=== PATIENT | male | born 1980 ===

== ENCOUNTER 2018-06-07 03:29 | Observation (INO) | payer OTHER ==
[2018-06-07 04:52] LABS: #Basophils 0.1 thou/uL (0.0-0.2); #Eosinphils 0.2 thou/uL (0.0-0.7); #Monocytes 0.5 thou/uL (0.11-0.59); #Neutrophils 4.5 thou/uL (1.40-6.50); %Basophils 1.1 % (0.0-1.0); %Eosinophils 2.3 % (0.0-10.0); %Lymphocytes 27.3 % (21.0-51.0); %Monocytes 7.2 % (0.0-10.0); %Neutrophils 62.1 % (42.0-75.0); Hemoglobin 15.8 g/dL (14.0-18.0); Mean Corpuscular HGB CONC 33.7 g/dL (32.0-36.0); Mean Corpuscular Hemoglobin 28.6 pg (27.0-31.0); Platelet Count 205 thou/uL (130-400); RBC Distribution Width 12.8 % (11.5-14.5); Red Blood Cell (RBC) Count 5.52 mill/uL (4.70-6.10); White Blood Cell (WBC) Count 7.3 thou/uL (4.8-10.8)
[2018-06-07 05:13] LABS: ALT (SGPT) 23 U/L (8-55); AST (SGOT) 36 U/L (5-34); Albumin 4.6 g/dL (3.5-5.0); Alkaline Phosphatase 68 U/L (40-150); Anion Gap 12 mmol/L (10-20); BUN (Urea Nitrogen) 11 mg/dL (8.9-20.6); Bilirubin, Total 1.5 mg/dL (0.2-1.2); Calc. Creatinine Clearance 0 mL/min (70-130); Calcium 9.5 mg/dL (7.8-10.44); Carbon Dioxide 25 mmol/L (22-29); Chloride 105 mmol/L (98-107); Estimated GFR-MDRD Greater than 90; Globulin 3.4 g/dL (2.4-3.5); Glucose 97 mg/dL (70-105); Lipase 28 U/L (8-78); Sodium 138 mmol/L (136-145)
[2018-06-07] MEDS ORDERED: Zolpidem Tartrate 5 MG TAB PO PRN (08:35)
[2018-06-07] MEDS ORDERED: Acetaminophen 325 MG TAB PO PRN (08:35)
[2018-06-07] MEDS ORDERED: HYDROcodone/Acetaminophen 5/325 mg Tablet PO PRN (08:35)
[2018-06-07] MEDS ORDERED: Bisacodyl 5 MG TAB PO PRN (08:35)
[2018-06-07] MEDS ORDERED: Ondansetron ODT 4 MG TAB PO PRN (08:35)
[2018-06-07] MEDS ORDERED: Calcium Carbonate 500 MG ChewTAB PO PRN (08:35)
[2018-06-07] MEDS ORDERED: Loperamide HCl 2 MG CAP PO PRN (08:35)
[2018-06-07] MEDS ORDERED: Bisacodyl 10 MG SUPP PR PRN (08:35)
[2018-06-07] MEDS ORDERED: Lorazepam 2 MG/ML VIAL SLOW IVP PRN (08:35)
[2018-06-07] MEDS ORDERED: Senokot S 8.6-50 MG TAB PO PRN (08:35)
[2018-06-07] MEDS ORDERED: Ondansetron PF 4 MG/2 ML Vial IVP PRN (08:35)
[2018-06-07] MEDS ORDERED: Famotidine 20 MG TAB ONE (09:02)
[2018-06-07 09:40] LABS: Bilirubin Negative (Negative); Blood, Urine Negative (Negative); Clarity CLEAR (Clear); Glucose, Urine (Dipstick) Negative (Negative); Leukocyte Negative (Negative); Nitrite Negative (Negative); Protein, Urine (Dipstick) Negative (Neg-Trace); Specific Gravity, Urine 1.035 (1.002-1.036); Urobilinogen 0.2 mg/dL (0.2-1.0); pH, Urine 6.5 (5.0-9.0)
[2018-06-07 09:50] LABS: Amphetamine Not Detected (NotDetected); Barbiturates Screen Not Detected (NotDetected); Benzodiazepine Screen Not Detected (NotDetected); Cocaine Metabolite Screen Not Detected (NotDetected); Medtox Control Line Valid? VALID (VALID); Medtox Reader # READER 1; Methadone Not Detected (NotDetected); Methamphetamine Not Detected (NotDetected); Opiate Screen Not Detected (NotDetected); Oxycodone Screen Not Detected (NotDetected); Phencyclidine (PCP) Not Detected (NotDetected); THC/Cannabinoid Screen Not Detected (NotDetected); Tricyclic Screen Not Detected (NotDetected)
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
[2018-06-07 12:03] VITALS: BMI 32.1
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
[2018-06-07] MEDS: Famotidine 20 MG TAB PO SCH ×2 (15:07→21:01)
--- NOTE | 2018-06-07 15:49 | MRI ---
MRI BRAIN WITHOUT CONTRAST: 06/07/17 HISTORY: Focal seizure. COMPARISON: None. FINDINGS: On the diffusion weighted imaging sequence there are no abnormal areas of diffusion restriction. This is confirmed on the ACD map. On the susceptibility weighted imaging sequence there are no abnormal areas of hemorrhage. On the FLA IR sequence there are no abnormal areas of gliosis. No midline shift or mass effect. The [place] flow voids are maintained. The clivus and marrow signal is normal. Corpus callosum is normal. IMPRESSION: Normal exam . POS: [facility]
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
[2018-06-07] MEDS: levETIRAcetam 500 MG TAB PO SCH (21:01)
[2018-06-07] MEDS ORDERED: Oxybutynin 5 MG TAB PO SCH (22:30)
[2018-06-08 06:50] LABS: #Basophils 0.1 thou/uL (0.0-0.2); #Eosinphils 0.2 thou/uL (0.0-0.7); #Lymphocytes 1.6 thou/uL (1.20-3.40); #Monocytes 0.5 thou/uL (0.11-0.59); #Neutrophils 3.9 thou/uL (1.40-6.50); %Basophils 0.9 % (0.0-1.0); %Lymphocytes 24.7 % (21.0-51.0); %Monocytes 8.5 % (0.0-10.0); Hemoglobin 16.3 g/dL (14.0-18.0); Mean Corpuscular HGB CONC 34.1 g/dL (32.0-36.0); Mean Corpuscular Hemoglobin 29.3 pg (27.0-31.0); Mean Corpuscular Volume 85.9 fL (78.0-98.0); Mean Platelet Volume 8.9 fL (7.4-10.4); Platelet Count 185 thou/uL (130-400); Red Blood Cell (RBC) Count 5.56 mill/uL (4.70-6.10); White Blood Cell (WBC) Count 6.3 thou/uL (4.8-10.8)
[2018-06-08 07:17] LABS: Anion Gap 12 mmol/L (10-20); BUN (Urea Nitrogen) 12 mg/dL (8.9-20.6); Calc. Creatinine Clearance 175 mL/min (70-130); Calcium 9.4 mg/dL (7.8-10.44); Carbon Dioxide 26 mmol/L (22-29); Chloride 104 mmol/L (98-107); Estimated GFR-MDRD Greater than 90; Glucose 88 mg/dL (70-105); Magnesium 2.5 mg/dL (1.6-2.6); Potassium 4.3 mmol/L (3.5-5.1); Sodium 138 mmol/L (136-145)
[2018-06-08] MEDS: levETIRAcetam 500 MG TAB PO SCH (08:04)
[2018-06-08] MEDS: Famotidine 20 MG TAB PO SCH (08:04)
[2018-06-08] MEDS ORDERED: Oxybutynin 5 MG TAB PO SCH (09:00)
--- NOTE | 2018-06-08 11:47 | DIS ---
DATE OF ADMISSION: 06/07/2018 DATE OF DISCHARGE: 06/08/2018 PRIMARY CARE PHYSICIAN: Niesha Brown. DISCHARGE DISPOSITION: Residential. PRIMARY DISCHARGE DIAGNOSIS: New onset focal seizure with Iraj's paralysis. SECONDARY DISCHARGE DIAGNOSIS: Obesity with body mass index 32. PRIMARY PROCEDURE/OPERATION: EEG, normal. Radiological investigation: MRI brain normal. Skull x-ray: Unremarkable. SIGNIFICANT LABS: WBC 6.3, hemoglobin 16.3, platelet 185. Sodium 138, potassium 4.3, BUN 12, creatinine 0.83, calcium 9.4, magnesium 2.5. LFT normal. Prolactin 12.4. TSH 1.26. Urinalysis normal. Urine drug screen negative. DISCHARGE MEDICATIONS: 1. Keppra 500 mg p.o. b.i.d. 2. Oxybutynin 10 mg p.o. b.i.d. CONTRAINDICATION: None. CODE STATUS: Full code. INPATIENT FLATBED STITCHER: Dr. Melva Fisher, neurologist, was following while in hospital. TEST RESULTS PENDING ON DISCHARGE: None. ALLERGIES: NO KNOWN DRUG ALLERGIES. DISCHARGE PLAN: Post hospital, the patient is instructed to follow up with Neurology as instructed. HOSPITAL COURSE: A 38-year-old male, who was admitted by me yesterday. Please see my HPI for further details. The patient was having seizure and Iraj's paralysis. He was initially evaluated at [facility] and subsequently, he was transferred to our hospital. His routine blood test was normal. We did MRI brain, which was normal. We consulted Neurology, and Neurology recommended to start antiepileptic medication with Keppra. Keppra was prescribed on discharge. EEG was done, which was essentially normal. I have seen and examined the patient at bedside today. PHYSICAL EXAMINATION: VITAL SIGNS: Currently, temperature 97.8, pulse 67, respiratory rate 16, saturation 99% on room air, blood pressure 117/82, weight 230 pounds. GENERAL: The patient is currently alert, awake, in no obvious acute distress. HEENT: Head; normocephalic, atraumatic. Eyes; pupils round, reactive to light. Extraocular muscle intact. ENT; oropharynx within normal limits. Moist mucous membranes. No oral lesion. No pharyngeal erythema. No exudate. NECK: Supple. No JVD. No thyromegaly. No carotid bruit. LUNGS: Clear to auscultation without any rhonchi or rales. CARDIAC: S1, S2. Regular without any murmur. ABDOMEN: Soft and benign. EXTREMITIES: No edema. NEUROLOGIC: Nonfocal examination. The patient is medically stable for discharge today. Job ID: [id number]
[2018-06-08 12:13] VITALS: BP 126/87; TEMP 98.8
--- NOTE | 2018-06-08 19:19 | PRG ---
DATE OF SERVICE: 06/08/2018 FOLLOWUP NEUROLOGY NOTE PRESENT ILLNESS: The patient has not had anymore focal seizures on the right side. He is getting his EEG at this time. No other complaints. OBJECTIVE: VITAL SIGNS: Blood pressure 126/87, temperature 98.8, pulse 89 and regular, respiratory rate 16, and O2 saturation is 96% on room air. NEUROLOGIC: Awake and alert. Cranial nerves 2 through 12 are normal. Motor 5/5 strength in the arms and legs. DTRs 2+. Toes downgoing. Sensation is normal. The patient underwent EEG and now is in the room during the EEG. The EEG is normal. The patient had some intermittent brief twitch of his legs during the EEG, but no EEG change indicated any epileptiform activity, so this was just some myoclonic twitches, not seizures that we see during his EEG. Other test; his white count is 6.3, hemoglobin 16.3, hematocrit 47.7, platelets 185,000. Chemistry showed a sodium 138, CO2 of 26, BUN 12, glucose 88, calcium 9.4. Prolactin level was 12.40, normal is 3.46 to 19.4. EEG done today is normal with no epileptiform activity. MRI of the brain without contrast is normal. The patient has been started on Keppra 500 mg p.o. twice a day. IMPRESSION: New seizure disorder with right-sided facial spasms and twitching, consistent with focal seizure disorder. The patient has had several head injuries in the past that could result in this. PLAN: Discussed with the patient. Discussed test results with him. Advised of seizure precautions. He should not drive, avoid unprotected heights, avoid dangerous machinery and tools. Avoid tub baths and use caution around water to avoid drowning. Continue with the Keppra. Risk and benefit of the medicine are discussed with him, and he should follow up with neurologist after he gets out of the hospital. Job ID: [id number]
--- NOTE | 2018-06-09 13:52 | EEG ---
Referring Physician: DR. NICANOR HERNANDEZ EEG # 19-04 TEST TYPE: URGENT PORTABLE INPATIENT REPORT: AN EEG USING THE INTERNATIONAL TEN-TWENTY SYSTEM OF ELECTRODE PLACEMENT WAS PERFORMED. The waking background consists of a well organized 9-10 hertz Alpha which is attenuated by eye opening. During drowse there is mild 5-6 hertz Theta seen diffusely. Photic stimulation and hyperventilation produced no abnormalities. During the EEG the patient's leg was noted to jerk on occasion. There was no epileptiform activity on EEG associated with this. IMPRESSION: NORMAL EEG. Re Etcher: ALIYAH Piping Design Specialist: [email or web address] HOSPITALBrandon
== END 2018-06-08 13:47 ==
LOC: ERS 03:29 → ERHOLD 05:49 → INTOOBSV 05:49 → 2SE 11:09
PROVIDERS: ADMIT Internal Medicine; ATTEND Internal Medicine
DX: G40.109 Localization-related (focal) (partial) symptomatic epilepsy and epileptic syndromes with simple partial seizures, not intractable, without status epilepticus (principal); G83.84 Todd's paralysis (postepileptic); E66.9 Obesity, unspecified; Z68.32 Body mass index [BMI] 32.0-32.9, adult; Z79.899 Other long term (current) drug therapy
CPT/HCPCS: 36415; 36416; 70250; 70551; 80048; 80053; 80306; 81003; 83690; 83735; 84146; 84443; 85025; 90471; 90686; 95816; 95819; G0008; G0378